=== PATIENT | female | born 1990 | race African-American/Black ===

== ENCOUNTER 2023-01-08 09:33 | Emergency (ER) | payer MEDICAID ==
[~2023-01-08] VITALS: Ht 175.3 cm; Wt 73.0 kg
[2023-01-08 09:54] VITALS: BP 107/74; O2SAT 100
[2023-01-08 09:56] VITALS: PULSE 84; RESP 16
[2023-01-08 11:30] VITALS: TEMP 98.4
[2023-01-08] MEDS ORDERED: ACETAMINOPHEN 325MG TABLET PO ONE (11:30)
[2023-01-08] MEDS ORDERED: IBUPROFEN 600MG TABLET PO ONE (13:00)
== END 2023-01-08 15:20 | disposition left against medical advice (07) ==
LOC: ER 09:33
DX: S00.83XA Contusion of other part of head, initial encounter (principal); S30.1XXA Contusion of abdominal wall, initial encounter; G89.11 Acute pain due to trauma; Y04.0XXA Assault by unarmed brawl or fight, initial encounter; Y93.89 Activity, other specified; Y92.89 Other specified places as the place of occurrence of the external cause; Y99.8 Other external cause status
CPT/HCPCS: 70486; 73600; 81025; 99284